=== PATIENT | female | born 1930 | race Caucasian/White ===

== ENCOUNTER 2018-07-11 11:50 | Day surgery (SDC) | payer MEDICARE, OTHER ==
[~2018-07-11] VITALS: Ht 158.8 cm; Wt 80.0 kg
[2018-07-11] MEDS ORDERED: SODIUM CHLORIDE 0.9% 1,000 ML IV SCH (12:14)
[2018-07-11] MEDS ORDERED: ASPI81TA45 PO (12:28)
[2018-07-11] MEDS ORDERED: VANCOMYCIN PMX 1GM/200ML 200 ML IVPB ONE (12:30)
[2018-07-11] MEDS ORDERED: CARV6.252 PO (12:30)
[2018-07-11] MEDS ORDERED: GABA-826 PO (12:30)
[2018-07-11] MEDS ORDERED: LEVO100T5 PO (12:30)
[2018-07-11] MEDS ORDERED: LISI-167 PO (12:31)
[2018-07-11] MEDS ORDERED: FLUO40CA9 PO (12:31)
[2018-07-11] MEDS ORDERED: QUET100T PO (12:31)
[2018-07-11] MEDS ORDERED: OMEP40CA6 PO (12:31)
[2018-07-11 12:58] LABS: BASOPHILS # (AUTO) 0.05 x10^3/uL (0-0.1); BASOPHILS % (AUTO) 1 % (0-1); EOSINOPHILS # (AUTO) 0.33 x10^3/uL (0-0.4); EOSINOPHILS % (AUTO) 4 % (1-7); LYMPHOCYTES # (AUTO) 2.11 x10^3/uL (1-3.4); LYMPHOCYTES % (AUTO) 27 % (22-44); MD NO; MEAN CORPUSCULAR HGB CONC 32.9 g/dL (32.4-35.8); MEAN CORPUSCULAR VOLUME 97.2 fL (80-100); MEAN PLATELET VOLUME 7.5 fL (7.4-10.4); MONOCYTES # (AUTO) 0.46 x10^3/uL (0.2-0.8); MONOCYTES % (AUTO) 6 % (2-9); NEUTROPHILS # (AUTO) 4.74 x10^3/uL (1.8-6.8); NEUTROPHILS % (AUTO) 62 % (42-75); PLATELET COUNT 244 x10^3/uL (130-400); RED BLOOD COUNT 4.39 x10^6/uL (3.82-5.3); RED CELL DISTRIBUTION WIDTH 13.5 % (9.6-15.2)
[2018-07-11 13:10] LABS: ANION GAP 8 mmol/L (5-15); CHLORIDE 109 mmol/L (98-107)
[2018-07-11 13:11] LABS: CREATININE 1.58 mg/dL (0.55-1.02)
[2018-07-11] MEDS ORDERED: CEFAZOLIN PMX 1GM/50ML 50 ML ONE (13:30)
[2018-07-11] MEDS ORDERED: MIDAZOLAM 1 MG/ML, 2ML ONE ×2 (13:30→14:18)
[2018-07-11] MEDS ORDERED: FENTANYL PF 100 MCG/2ML ONE (13:30)
[2018-07-11] MEDS ORDERED: CEFAZOLIN 1,000 MG ONE (13:30)
[2018-07-11] MEDS ORDERED: LIDOCAINE 1%, 20ML ONE (13:30)
[2018-07-11] MEDS ORDERED: VANCOMYCIN 500 MG ONE (13:41)
[2018-07-11] MEDS ORDERED: VANCOMYCIN PMX 1GM/200ML 200 ML ONE (13:41)
[2018-07-11] MEDS ORDERED: HYDROcodone/APAP 5/325 TABLET PO PRN (15:00)
[2018-07-11] MEDS ORDERED: HOLD MEDICATION MC PRN (15:00)
[2018-07-11] MEDS ORDERED: SODIUM CHLORIDE FLUSH 10ML SYR IVF SCH (21:00)
== END 2018-07-11 16:38 | disposition home or self-care (01) ==
LOC: CACL 11:50
PROVIDERS: ATTEND Internal Medicine Cardiovascular Disease
DX: I49.5 Sick sinus syndrome (principal); J44.9 Chronic obstructive pulmonary disease, unspecified; E78.2 Mixed hyperlipidemia; Z95.0 Presence of cardiac pacemaker; Z79.82 Long term (current) use of aspirin; Z88.0 Allergy status to penicillin; Z88.8 Allergy status to other drugs, medicaments and biological substances; Z91.013 Allergy to seafood
CPT/HCPCS: 33228; 36415; 80048; 85025; 99156; 99157; C1785; J0690; J2250; J3010; J3370